=== PATIENT | male | born 1990 | race Caucasian/White ===

== ENCOUNTER → 2020-07-28 10:45 | Outpatient (CLI) | payer BC, SELFPAY ==
--- NOTE | ~2020-07-28 | CT_ITS ---
EXAMINATION: CT abdomen pelvis w con DATE: 07/28/2020 11:09 INDICATION: Enlarged lymph node left lower quadrant. Generalized abdominal pain. TECHNIQUE: Computed tomography (CT) of the abdomen and pelvis was performed with 100 cc Omnipaque 350 intravenous contrast. Automated exposure control and iterative reconstruction technique were employe d. Exam dose: 567.31 mGy-cm total exam DLP. COMPARISON: None. FINDINGS: The lung bases are clear. Normal heart size. No pericardial or pleural effusion. The liver, gallbladder, bile ducts, spleen, pancreas, pancreatic duct, and adrenal glands and kidneys are unremarkable. Normal caliber of the abdominal aorta. No intraperitoneal or retroperitoneal or pelvic mass lesion or adenopathy or ascites. The urinary bladder and prostate gland and seminal vesicles are unremarkable. No evidence of appendicitis. No bowel obstruction, bowel wall thickening, pneumatosis or intraperiton eal free air. Small fat-containing umbilical hernia. There is chronic deformity of the left femoral head. Included skeletal structures are otherwise unrem arkable. IMPRESSION: Chronic deformity left femoral head Reviewed, dictated and finalized at Location A. Reviewed, dictated and finalized at location B.
== END ==
PROVIDERS: PCP Family Medicine; Visit Provider Family Medicine
DX: R59.9 Enlarged lymph nodes, unspecified (principal)
CPT/HCPCS: 74177; Q9967

== ENCOUNTER 2021-07-27 02:15 | Day surgery (SDC) | payer BC, SELFPAY ==
[2021-07-21 08:30] VITALS: BMI 24.7
--- NOTE | 2021-07-25 12:29 | WPDANESEPPF ---
Anes - Initial Pre Proc Eval Procedure: Operation Date: 07/27/21 13:00 Proposed Procedures p Colonoscopy - Antoine Gonzalez MD Date/Time: 07/25/21 12:29 Surgeon: Antoine Gonzalez MD Pre Op Diagnosis: abdominal pain, constipation Patient Data Age: 31 Gender: M Height: 1.83 m Weight: 83 kg Allergies Allergy/AdvReac Type Severity Reaction Status Date / Time amoxicillin Allergy Unknown Skin Verified 07/27/21 11:42 Reaction Home Medications Medication Instructions Recorded Confirmed Type plecanatide 3 mg tablet 3 mg PO DAILY 30 Days #30 tablet 06/30/21 07/21/21 Rx Patient hx anesthesia problems: none Family hx anesthesia problems: none Results Review: All pre-operative results and documents have been reviewed as part of the pre-operative evaluation. [facility]LY [facility] Past Medical History Medical History (Updated 06/30/21 @ 14:32 by Justyna Leal CMA) Anxiety Arthritis IBS (irritable bowel syndrome) Migraine Surgical History Surgical History H/O arthroscopy Family History Family History Father Hypertension Mother Family history of elevated blood lipids Family history of cardiovascular disease Family history of cardiac disorder Social History Social History (Updated 06/30/21 @ 14:33 by Justyna Leal CMA) Smoking status: Never smoker Second hand tobacco smoke exposure: No Alcohol intake: never Alcohol use details: social Substance use: never Substance use type: does not use Living arrangements: with family Spiritual care concerns: No Anes - Eval Final PreProcedure Day of Procedure 07/25/21 12:29 Patient weight: normal Heart: regular rate and rhythm Lungs: clear to auscultation and normal air movement Airway: Mallampati scale class II Neurological: alert and oriented Last oral intake: >/= 8 hours ASA classification: II Emergent: no Anesthetic plan: proceed Anesthesia type and monitoring: general GIVS and standard monitoring Results Review: All pre-operative results and documents have been reviewed as part of the pre-operative evaluation. Informed Consent: The patient's anesthetic plan and its attendant risks and benefits were discussed with the patient/family/POA. Questions were solicited and answers provided to the satisfaction of the patient/family/POA.
--- NOTE | 2021-07-26 10:49 | P.HP_ITS ---
History of Present Illness History of Present Illness Consent: Risks, benefits, and alternatives have been discussed and questions answered. Patient agrees to proceed with procedure. Chief complaint: abdominal pain, constipation Narrative: Derik Hernandez is a 31 year old male with severe constipation. He had tried Linzess but had problems with it , as it causes him to have a discomfort in his throat any fear that he may be allergic to it. He had also tried another medication which helped for about 1 week. Although his bowels move more frequently, the pain did not subside. He has tried other things such as high- fiber diet Review of Systems Review of Systems: All systems reviewed & are unremarkable except as noted in HPI and below PMFSH Past Medical History Medical History Anxiety Arthritis IBS (irritable bowel syndrome) Migraine Surgical History Surgical History H/O arthroscopy Family History Family History Father Hypertension Mother Family history of elevated blood lipids Family history of cardiovascular disease Family history of cardiac disorder Social History Social History Smoking status: Never smoker Second hand tobacco smoke exposure: No Alcohol intake: never Alcohol use details: social Substance use: never Substance use type: does not use Living arrangements: with family Spiritual care concerns: No Meds Home Medications and Allergies Home Medications Medication Instructions Recorded Confirmed Type plecanatide 3 mg tablet 3 mg PO DAILY 30 Days #30 tablet 06/30/21 07/21/21 Rx Allergies Allergy/AdvReac Type Severity Reaction Status Date / Time amoxicillin Allergy Unknown Skin Verified 07/27/21 11:42 Reaction Exam Const: General: alert Orientation/consciousness: patient oriented x3 Resp: Auscultation: clear to auscultation bilaterally Cardio: Rhythm: regular rhythm GI: GI Palp: Yes Soft to palpation and No Tenderness to palpation present (GI) Neuro: General: patient oriented x3 Assessment and Plan Assessment and plan (1) Constipation: Qualifiers: Constipation type: other constipation type Qualified Code(s): K59.09 - Other constipation Code(s): K59.00 - Constipation, unspecified Status: Acute Assessment and Plan: Colonoscopy with possible biopsy or polypectomy or cautery or injection of substances.
[2021-07-27 11:44] VITALS: BP 136/75; PULSE 83; RESP 18; TEMP 36.2; O2SAT 98
[2021-07-27] MEDS: LACTATED RINGERS 1,000 ML 150 ML IV CONT (11:57)
[2021-07-27 13:21] VITALS: BP 120/66; PULSE 74; RESP 18; O2SAT 100
[2021-07-27 13:31] VITALS: BP 116/63; PULSE 75; RESP 18; O2SAT 100
[2021-07-27 13:40] VITALS: BP 110/70; PULSE 66; RESP 18; O2SAT 100
== END 2021-07-27 13:48 | disposition home or self-care (01) ==
PROVIDERS: PCP Family Medicine; Visit Provider Internal Medicine Gastroenterology
PROC: 0DJD8ZZ Inspection of Lower Intestinal Tract, Via Natural or Artificial Opening Endoscopic (ICD-10-PCS; CPT 45378; principal; 2021-07-27 13:00)
DX: K58.1 Irritable bowel syndrome with constipation (principal)
CPT/HCPCS: 45378; J2704; J7120

== ENCOUNTER → 2022-01-16 09:37 | Outpatient (CLI) | payer BC, SELFPAY ==
--- NOTE | ~2022-01-16 | XR_ITS ---
XR wrist LT min 3V DATE: 01/16/2022 09:47 INDICATION: Left wrist pain TECHNIQUE: 4 views COMPARISON: None FINDINGS: No fracture or dislocation, periosteal reaction or bone destruction. Joint spaces are prese rved. No chondrocalcinosis IMPRESSION: No significant abnormality Reviewed, dictated and finalized at location A. IMPRESSION: No significant abnormality
== END ==
PROVIDERS: PCP Family Medicine; Visit Provider Family Medicine
DX: M25.532 Pain in left wrist (principal)
CPT/HCPCS: 73110

== ENCOUNTER → 2022-11-12 15:17 | Outpatient (CLI) | payer BC, SELFPAY ==
--- NOTE | ~2022-11-12 | XR_ITS ---
EXAMINATION: XR chest 2V Exam Date/Time: 11/12/2022 15:27 CDT HISTORY: sob Comparison: 11/14/2017. RESULT: Lines, tubes, and devices: None. Lungs and pleura: Clear. Cardiomediastinal silhouette: Stable. Other: No acute osseous or upper abdominal finding. IMPRESSION: No acute cardiopulmonary process. Reviewed, dictated and finalized at location K.
== END ==
PROVIDERS: PCP Family Medicine; Visit Provider Family Medicine
DX: R06.02 Shortness of breath (principal)
CPT/HCPCS: 71046

== ENCOUNTER 2023-01-20 13:29 | Outpatient (CLI) | payer BC, SELFPAY ==
[2023-01-20 17:11] LABS: Alanine Aminotransferase 79 U/L (6-50); Albumin Level 4.5 g/dL (3.5-5.1); Alkaline Phosphatase 65 U/L (38-126); Anion Gap 5 mmol/L (8-16); Aspartate Amino Transferase 47 U/L (17-59); Bilirubin,Total 0.5 mg/dL (0.2-1.3); Blood Urea Nitrogen 16 mg/dL (9-20); Carbon Dioxide 32 mmol/L (22-30); Chloride 102 mmol/L (98-107); Estimated Glomerular Filt Rate > 60; Glucose 85 mg/dL (65-110); Potassium 4.1 mmol/L (3.4-5.0); Sodium 139 mmol/L (137-145)
[2023-01-20 17:18] LABS: Hematocrit 43.4 % (42.0-52.0); Hemoglobin 14.4 g/dL (14.0-18.0); Mean Corpuscular HGB Conc 33.2 g/dl (32-36); Mean Corpuscular Hemoglobin 29.8 pg (26-34); Mean Corpuscular Volume 89.9 fl (80-100); Mean Platelet Volume 10.8 fl (7.4-10.4); Platelet Count Result 240 k/mm3 (150-375); Red Blood Count 4.83 M/mm3 (4.6-6.20); Red Cell Distribution Width 11.6 % (11.5-14.5); White Blood Count 6.4 K/mm3 (4.5-10.0)
[2023-01-20 17:42] LABS: Thyroid Stimulating Hormone 0.439 uIU/mL (0.465-4.680)
[2023-01-20 17:51] LABS: Erythrocyte Sedimentation Rate 9 mm/hr (0-20)
== END 2023-01-20 13:30 | disposition home or self-care (01) ==
LOC: ANHGOSHLAB 13:30
PROVIDERS: PCP Family Medicine; Visit Provider Family Medicine
DX: R51.9 Headache, unspecified (principal); Z79.899 Other long term (current) drug therapy
CPT/HCPCS: 36415; 80053; 84443; 85027; 85652

== ENCOUNTER → 2023-01-28 10:42 | Outpatient (CLI) | payer BC, SELFPAY ==
--- NOTE | ~2023-01-28 | CT_ITS ---
EXAMINATION: CT brain & sinus wo con DATE: 01/28/2023 10:57 INDICATION: Headaches located in the frontal sinus area retro-orbital area TECHNIQUE: Computed tomography (CT) of the head was performed without intravenous contrast. The mA wa s adjusted according to patient size. Iterative reconstruction technique was employed. Exam dose: 72 6.40 mGy-cm total exam DLP. COMPARISON: None FINDINGS: Prominent cisterna magna. No intracranial mass lesion or hemorrhage or cerebrovascular acci dent, midline shift or mass effect. Normal magana-white matter differentiation. Normal ventricular size . No orbital mass lesion. There is soft tissue swelling of the nasal turbinates, right greater than left. The ostiomeatal units are patent. There is mild mucoperiosteal thickening in the right frontoethmoid area, minimal mucoperiosteal thick ening in the lower maxillary sinuses and mild patchy soft tissue thickening of the ethmoid air cells, slight mucoperiosteal thickening of the sphenoid sinuses. No paranasal sinus fluid levels are noted. The mastoid air cells are normally developed and aerated. No fracture or bone destruction of the cranial vault. IMPRESSION: Mild paranasal sinus disease No significant intracranial abnormality Reviewed, dictated and finalized at Location A. Reviewed, dictated and finalized at location A.
== END ==
PROVIDERS: PCP Family Medicine; Visit Provider Family Medicine
DX: R51.9 Headache, unspecified (principal)
CPT/HCPCS: 70450; 70486

== ENCOUNTER 2023-07-14 09:23 | Outpatient (CLI) | payer BC, SELFPAY ==
[2023-07-14 19:20] LABS: Alanine Aminotransferase 43 U/L (6-50); Albumin Level 4.6 g/dL (3.5-5.1); Alkaline Phosphatase 94 U/L (38-126); Anion Gap 5 mmol/L (8-16); Aspartate Amino Transferase 42 U/L (17-59); Blood Urea Nitrogen 15 mg/dL (9-20); Calcium 9.5 mg/dL (8.4-10.2); Carbon Dioxide 29 mmol/L (22-30); Chloride 105 mmol/L (98-107); Cholesterol 224 mg/dL (0-200); Estimated Glomerular Filt Rate > 60; Glucose 93 mg/dL (65-110); HDL Direct 46 mg/dL; Potassium 4.3 mmol/L (3.4-5.0); Sodium 139 mmol/L (137-145); Triglycerides 76 mg/dL (<150)
[2023-07-14 19:35] LABS: Hematocrit 47.8 % (42.0-52.0); Hemoglobin 15.4 g/dL (14.0-18.0); Mean Corpuscular HGB Conc 32.2 g/dl (32-36); Mean Corpuscular Hemoglobin 28.5 pg (26-34); Mean Corpuscular Volume 88.5 fl (80-100); Mean Platelet Volume 10.5 fl (7.4-10.4); Platelet Count Result 230 k/mm3 (150-375); Thyroid Stimulating Hormone 0.456 uIU/mL (0.465-4.680); White Blood Count 5.9 K/mm3 (4.5-10.0)
[2023-07-14 19:38] LABS: LDL Cholesterol Direct 140 mg/dL
== END 2023-07-14 09:24 | disposition home or self-care (01) ==
LOC: ANHGOSHLAB 09:25
PROVIDERS: PCP Family Medicine; Visit Provider Family Medicine
DX: E66.3 Overweight (principal); E78.5 Hyperlipidemia, unspecified; R79.89 Other specified abnormal findings of blood chemistry; Z79.899 Other long term (current) drug therapy
CPT/HCPCS: 36415; 80053; 80061; 84439; 84443; 85027

== ENCOUNTER 2024-08-19 10:12 | Emergency (ER) | payer BC, SELFPAY ==
--- NOTE | ~2024-08-19 | XR_ITS ---
XR chest 2V Ordering provider: Rakesh Vick MD History: 34 years Male with . chest pain . Comparison: None.2022 FINDINGS: MEDIASTINUM: The cardiac silhouenot enlarged.l ed. No infiltrates, effusions or pneumothorax.t ax. Possibility of a nodule seen anteriorly in the later al view and most likely in the right lower lobe is not excluded. 3 months follow-up advised. Macy free air under the diaphragm.p gm. IMPRESSION: No acute cardiopulmonary pathology. Possibility of nodule is seen in the lateral view is not excluded. 3 months follow-up advised. Reviewed, dictated and finalized at location A. IMPRESSION: No acute cardiopulmonary pathology. Possibility of nodule is seen in the lateral view is not excluded. 3 months fol low-up advised.
--- NOTE | 2024-08-19 10:14 | ECG_ITS ---
Test Date: 2024-08-19 10:24:38 Measurements Intervals [place] Rate: 79 P: 77 NM: 156 QRS: 99 QRSD: 102 T: 49 QT: 347 QTc: 399 Interpretive Statements SINUS RHYTHM RIGHT AXIS DEVIATION BORDERLINE ECG No previous ECG available for comparison Electronically Signed On 08-19-2024 14:46:22 CDT by Dillan Squires D.O.
--- OUTSIDE RECORDS SUMMARY | 2024-08-19 10:14 | XMS_ITS | Clinical Summary ---
Author Organization [facility] [place] 163 [facility] Address [address] [place] [address] Care Team Providers Care Freelance Web Designer Name Role Phone Rick Maynard MD Primary Care Provider [phone] Allergies Active Allergy Reactions Criticality Noted Date Comments Amoxicillin Rash Medium 09/29/2020 Medications escitalopram (LEXAPRO) 5 mg tablet 09/15/2023 Active Active Problems No known active problems Surgical History Surgery Date Site/Laterality Comments NO PAST SURGERIES Medical History Medical History Date Comments No pertinent past medical history Family History Medical History Relation Name Comments No Known Problems Father No Known Problems Mother Relation Name Status Comments Father Alive Mother Alive Social History Tobacco Use Types Packs/Day Years Used Date Smoking Tobacco: Never Smokeless Tobacco: Never Personal Safety Answer Date Recorded Getting School Help Needed Not on file 07/09 Sex and Gender Information Value Date Recorded Sex Assigned at Not on file Legal Sex Male 9:38 AM CDT Gender Identity Not on file Sexual Orientation Not on file Obstetrics History Last Filed Vital Signs Vital Sign Reading Time Taken Comments Blood Pressure 128/72 12/07/2023 9:25 AM CDT Pulse 80 12/07/2023 9:25 AM CDT Temperature 36.6 C (97.8 F) 12/07/2023 9:25 AM CDT Respiratory Rate 18 12/07/2023 9:25 AM CDT Oxygen Saturation 98% 12/07/2023 9:25 AM CDT Inhaled Oxygen Concentration - - Weight 86.2 kg (190 lb) 12/07/2023 9:25 AM CDT Height 182.9 cm (6') 12/07/2023 9:25 AM CDT Body Mass Index 25.77 12/07/2023 9:25 AM CDT Plan of Treatment Health Maintenance Due Date Last Done Comments Depression Screening 1989 Hepatitis C Screening 1989 Varicella Vaccines (1 of 2 - 13+ 2-dose series) 2002 Hepatitis B Screening 2007 Regular Well Visit/Exam 18-64 2007 Influenza Vaccine (#1) 2024 02/27/2019 DTaP/Tdap/Td Vaccine (3 - Td or Tdap) 12/18/2027 12/17/2017, 06/30/1993 HPV Vaccines Aged Out No longer eligi ble based on patient's age to complete this topic Pneumococcal vaccine <65 Aged Out No longer eligible based on patient's age to complete this topic Insurance [employer] OOS Care Teams Freelance Web Designer Relationship Specialty Start Date End Date Rick Maynard MD [address] [place] [address] PCP - General Family Medicine 09/29/20
--- OUTSIDE RECORDS SUMMARY | 2024-08-19 10:14 | XMS_ITS | Referral Summary ---
Author Organization [facility] [place] 163 [facility] Address [address] [address] Care Team Providers Care Flat Screen Worker Name Role Phone Rick Maynard MD Primary Care Provider [phone] Allergies Active Allergy Reactions Criticality Noted Date Comments Amoxicillin Rash Medium 09/29/2020 Medications escitalopram (LEXAPRO) 5 mg tablet 09/15/2023 Active Active Problems No known active problems Social History Tobacco Use Types Packs/Day Years Used Date Smoking Tobacco: Never Smokeless Tobacco: Never Personal Safety Answer Date Recorded Getting School Help Needed Not on file 07/09 Sex and Gender Information Value Date Recorded Sex Assigned at Not on file Legal Sex Male 9:38 AM CDT Gender Identity Not on file Sexual Orientation Not on file Last Filed Vital Signs Vital Sign Reading [...] 12/07/2023 9:25 AM CDT Plan of Treatment Not on file Insurance [employer] OOS Care Teams Flat Screen Worker Relationship Specialty Start Date End Date Rick Maynard MD [address] [place] [address] PCP - General Family Medicine 09/29/20
[2024-08-19 10:29] VITALS: BP 133/84; PULSE 81; RESP 16; TEMP 36.3; O2SAT 99
[2024-08-19 11:11] LABS: Basophils Absolute Auto 0.1 K/mm3 (0.0-0.1); Basophils Percent Auto 1.2 % (0.2-1.2); Eosinophils Absolute Auto 0.3 K/mm3 (0-0.3); Eosinophils Percent Auto 4.9 % (0-4.4); Hematocrit 44.7 % (42.0-52.0); Hemoglobin 14.9 g/dL (14.0-18.0); Immature Granulocyte Absolute 0.02 K/mm3 (0.00-0.031); Immature Granulocyte Percent A 0.3 % (0-0.5); Lymphocytes Absolute Auto 1.37 K/mm3 (0.9-3.2); Lymphocytes Percent Auto 23.3 % (18.3-44.2); Mean Corpuscular HGB Conc 33.3 g/dl (32-36); Mean Platelet Volume 10.2 fl (7.4-10.4); Monocytes Absolute Auto 0.5 K/mm3 (0.1-0.6); Monocytes Percent Auto 8.3 % (2.6-8.5); Neutrophils Absolute Auto 3.7 K/mm3 (1.3-6.7); Platelet Count Result 210 k/mm3 (150-375); Red Blood Count 5.14 M/mm3 (4.6-6.20); Red Cell Distribution Width 12.2 % (11.5-14.5); White Blood Count 5.9 K/mm3 (4.5-10.0)
[2024-08-19 11:15] VITALS: BP 135/80; PULSE 71; RESP 16; TEMP 36.6; O2SAT 100; O2SAT 98
[2024-08-19] MEDS: ASPIRIN 81 MG CHEWABLE TABLET 324 MG PO (11:19)
[2024-08-19 11:27] LABS: Alanine Aminotransferase 52 U/L (6-50); Albumin Level 4.7 g/dL (3.5-5.1); Alkaline Phosphatase 107 U/L (38-126); Anion Gap 9 mmol/L (4-12); Aspartate Amino Transferase 32 U/L (17-59); Bilirubin,Total 0.5 mg/dL (0.2-1.3); Blood Urea Nitrogen 19 mg/dL (9-20); Calcium 9.3 mg/dL (8.4-10.2); Carbon Dioxide 28 mmol/L (22-30); Chloride 104 mmol/L (98-107); Estimated CRCL calculation 86 ml/min; Estimated Glomerular Filt Rate > 60; Glucose 104 mg/dL (65-110); INR 0.9; Lipase 114 U/L (23-300); Partial Thromboplastin Time 24.2 Seconds (22.3-36.8); Potassium 4.6 mmol/L (3.4-5.0); Prothrombin Time 13.1 Seconds (11.1-14.7); Sodium 141 mmol/L (137-145)
--- OUTSIDE RECORDS SUMMARY | 2024-08-19 11:28 | XMS_ITS | Clinical Summary ---
Author Organization [facility] [place] 163 [facility] Address [address] [facility] [address] Care Team Providers Care Facility Manager Name Role Phone Rick Maynard MD Primary Care Provider [phone] Allergies Active Allergy Reactions Criticality Noted Date [...] patient's age to complete this topic Insurance [employer] OOS Care Teams Facility Manager Relationship Specialty Start Date End Date Rick Maynard MD [address] [place] [address] PCP - General Family Medicine 09/29/20
--- OUTSIDE RECORDS SUMMARY | 2024-08-19 11:28 | XMS_ITS | Referral Summary ---
Author Organization [facility] [place] 163 [facility] Address [address] [place] [address] Care Team Providers Care Medical Laboratory Scientist Name Role Phone Rick Maynard MD Primary Care Provider [phone] Allergies Active Allergy Reactions Criticality Noted Date [...] Plan of Treatment Not on file Insurance [employer] OOS Care Teams Medical Laboratory Scientist Relationship Specialty Start Date End Date Rick Maynard MD [address] [place] [address] PCP - General Family Medicine 09/29/20
[2024-08-19 11:38] LABS: Troponin I < 0.012 ng/mL (0.000-0.034)
[2024-08-19 12:12] VITALS: BP 124/78; PULSE 65; RESP 16; O2SAT 99
[2024-08-19 13:00] VITALS: BP 122/79; PULSE 62; RESP 14; O2SAT 99
--- NOTE | 2024-08-19 13:07 | ECG_ITS ---
Test Date: 2024-08-19 13:14:11 Measurements Intervals [place] Rate: 63 P: 69 TN: 168 QRS: 87 QRSD: 102 T: 42 QT: 373 QTc: 382 Interpretive Statements SINUS RHYTHM BASELINE ARTIFACT- I, III, AVL BORDERLINE ECG Compared to ECG 08/19/2024 10:24:38 Right-axis deviation no longer present Electronically Signed On 08-19-2024 14:51:42 CDT by Dillan Squires D.O.
[2024-08-19 13:38] LABS: Troponin I < 0.012 ng/mL (0.000-0.034)
--- NOTE | 2024-08-19 13:59 | ED_ITS ---
HPI - General Adult General Chief complaint: Chest Pain Stated complaint: chest pain 2 days Time Seen by Provider: 08/19/24 11:16 History of Present Illness HPI narrative: This is a 34-year-old male presenting ED with chief complaint of chest pain. Over the last 3 days the patient has been having intermittent chest tightness. This typically in the center of his chest sometimes he feels discomfort in his left arm and jaw. It is 2 or 3 of intensity. It comes and goes and lasts for about an hour to time. He has never had pain like this before there are no exacerbating or alleviating factors. He did have a panic attack several days ago. The pain itself is not associated with vomiting, diaphoresis or exertion. He denies fevers chills productive cough or difficulty breathing. No lower extremity edema. Patient exercises 3-4 times per week. He does not have any risk factors for coronary artery disease. He does not smoke cigarettes. No family history of coronary artery disease. Related Data Allergies Allergy/AdvReac Type Severity Reaction Status Date / Time amoxicillin Allergy Unknown Skin Verified 08/19/24 11:16 Reaction PMFSH Past Medical History Medical History Juvenile osteochondrosis of hip and pelvis Atypical chest pain Arthritis IBS (irritable bowel syndrome) Migraine Anxiety Surgical History Surgical History H/O arthroscopy Family History Family History Father Hypertension Mother Family history of elevated blood lipids Family history of cardiovascular disease Family history of cardiac disorder Social History Social History Smoking status: Never smoker Second hand tobacco smoke exposure: No Alcohol intake: current Alcohol use details: social Substance use: never Substance use type: does not use Lack of Transportation: No Lack of Food: Never True Current Housing: I Have Housing Concerned About Future Housing: No Difficulty Paying Gas/Electric Bills: No Difficulty Paying for Meds: No Currently Unemployed: No Education: Bachelor's Degree Difficulty w/ Childcare or Family Care: No Living arrangements: with family Spiritual care concerns: No Exam 2 Narrative: APPEARANCE: No apparent distress. Head: atraumatic. EYES: EOMI, NOSE: Atraumatic NECK: Trachea midline RESPIRATORY: No increased rate of breathing CTAB CARDIOVASCULAR: RRR, no peripheral edema ABDOMINAL: Non-distended nontender MUSCULOSKELETAl: No obvious deformities NEURO: Alert. Moving 4/4 extremities SKIN:: Warm, dry. Normal color PSYCHIATRIC: Normal affect Course Vital Signs Vital signs: Vital Signs Temperature 97.4 F L 08/19/24 10:29 Pulse Rate 81 08/19/24 10:29 Respiratory Rate 16 08/19/24 10:29 Blood Pressure 133/84 08/19/24 10:29 Pulse Oximetry 99 08/19/24 10:29 Oxygen Delivery Room Air 08/19/24 10:29 Temperature 97.4 F L 08/19/24 10:29 Pulse Rate 81 08/19/24 10:29 Respiratory Rate 16 08/19/24 10:29 Blood Pressure 133/84 08/19/24 10:29 Pulse Oximetry 100 08/19/24 11:15 Oxygen Delivery Room Air 08/19/24 11:15 Medical Decision Making MDM Narrative Medical decision making narrative: -Course: Patient's EKGs and labs are reviewed without significant high risk changes. Cardiac risk factors reviewed. Heart score is <4 and it iss reasonable for further risk stratification to be performed as outpatient. Pain was not sudden or maximal onset not tearing or ripping quality. No other signs or symptoms suggest aortic dissection. PERC Negative PE is felt to be unlikely. No pneumonia seen on evaluation today. Patient is felt to be reasonable candidate for continued evaluation as an outpatient. -DDX includes but is not limited to: ACS, pneumonia, PE, pneumothorax or aortic dissection Independent EKG interpretation: Rhythm [sinus], Rate [63], [place] -[normal], AL -[normal], QRS [narrow], QTC [normal], T waves -[negative for concerning inversions], ST Segments - [Negative for concerning elevations] Final interpretations: [Normal Sinus Rhythm] Vital Signs Vital Signs: Vital Signs Temperature 97.4 F L 08/19/24 10:29 Pulse Rate 81 08/19/24 10:29 Respiratory Rate 16 08/19/24 10:29 Blood Pressure 133/84 08/19/24 10:29 Pulse Oximetry 99 08/19/24 10:29 Oxygen Delivery Room Air 08/19/24 10:29 Temperature 97.4 F L 08/19/24 10:29 Pulse Rate 81 08/19/24 10:29 Respiratory Rate 16 08/19/24 10:29 Blood Pressure 133/84 08/19/24 10:29 Pulse Oximetry 100 08/19/24 11:15 Oxygen Delivery Room Air 08/19/24 11:15 Lab Data 08/19/24 10:57 08/19/24 10:57 Labs: Lab Results 08/19/24 08/19/24 Range/Units 10:57 13:08 WBC 5.9 (4.5-10.0) K/mm3 RBC 5.14 (4.6-6.20) M/mm3 Hgb 14.9 (14.0-18.0) g/dL Hct 44.7 (42.0-52.0) % MCV 87.0 (80-100) fl MCH 29.0 (26-34) pg MCHC 33.3 (32-36) g/dl RDW 12.2 (11.5-14.5) % Plt Count 210 (150-375) k/mm3 MPV 10.2 (7.4-10.4) fl Immature Gran % (Auto) 0.3 (0-0.5) % Neut % (Auto) 62.0 (45.5-73.1) % Lymph % (Auto) 23.3 (18.3-44.2) % [place] % (Auto) 8.3 (2.6-8.5) % Eos % (Auto) 4.9 H (0-4.4) % Baso % (Auto) 1.2 (0.2-1.2) % Lymph # (Auto) 1.37 (0.9-3.2) K/mm3 [place] # (Auto) 0.5 (0.1-0.6) K/mm3 Eos # (Auto) 0.3 (0-0.3) K/mm3 Baso # (Auto) 0.1 (0.0-0.1) K/mm3 Abs Immat Gran (auto) 0.02 (0.00-0.031) K/mm3 Absolute Neuts (auto) 3.7 (1.3-6.7) K/mm3 Absolute Nucleated RBC 0.000 (0.0-0.012) K/mm3 Nucleated RBC % 0.0 (0.0-0.2) % PT 13.1 (11.1-14.7) Seconds INR 0.9 APTT 24.2 (22.3-36.8) Seconds Sodium 141 (137-145) mmol/L Potassium 4.6 (3.4-5.0) mmol/L Chloride 104 (98-107) mmol/L Carbon Dioxide 28 (22-30) mmol/L Anion Gap 9 (4-12) mmol/L BUN 19 (9-20) mg/dL Creatinine 1.17 (0.7-1.3) mg/dL Estim Creat Clear Calc 86 ml/min Estimated GFR > 60 (59 - ) Glucose 104 (65-110) mg/dL Calcium 9.3 (8.4-10.2) mg/dL Total Bilirubin 0.5 (0.2-1.3) mg/dL AST 32 (17-59) U/L ALT 52 H (6-50) U/L Alkaline Phosphatase 107 (38-126) U/L Troponin I < 0.012 < 0.012 (0.000-0.034) ng/mL Total Protein 8.0 (6.3-8.2) g/dL Albumin 4.7 (3.5-5.1) g/dL Lipase 114 (23-300) U/L Discharge Plan Discharge Clinical Impression: Chest pain Patient Disposition: Left Against Medical Advice Condition: Stable Instructions: Chest Pain (ED) Additional Instructions: You seen in the emergency department for chest pain. Workup here was reassuring. Please follow-up with your primary care physician in the next 1 week for further management of your chest pain as well as your anxiety/panic attacks. Your chest x-ray showed a possible nodule in the right lower lobe. Please follow-up with your primary care physician as you may need repeat imaging in 3 months for further evaluation. Patient Language: South Sudanese Prescriptions: No Action albuterol sulfate 90 mcg/actuation HFA aerosol inhaler 2 inh inhalation Q4H PRN (Reason: shortness of breath or wheezing) Qty: 8.5 3RF cyclobenzaprine 10 mg tablet 10 mg PO TID PRN (Reason: muscle spasm) Qty: 30 0RF escitalopram oxalate 5 mg tablet 5 mg PO DAILY Qty: 30 1RF Follow-up/Referrals: Tahira Rojas DO [Primary Care Provider] - 1 Week (Anxiety/CHest pain, Lung nodule )
[2024-08-19 14:00] VITALS: BP 116/71; PULSE 61; RESP 18; O2SAT 99
[2024-08-19 14:14] VITALS: BP 132/78; PULSE 80; RESP 16; TEMP 36.6; O2SAT 100
== END 2024-08-19 14:15 | disposition left against medical advice (07) ==
PROVIDERS: Emergency Provider Emergency Medicine; PCP Family Medicine
DX: R07.89 Other chest pain (principal); K58.9 Irritable bowel syndrome, unspecified; M19.90 Unspecified osteoarthritis, unspecified site; F41.9 Anxiety disorder, unspecified; Z79.899 Other long term (current) drug therapy; R94.31 Abnormal electrocardiogram [ECG] [EKG]
CPT/HCPCS: 36415; 71046; 80053; 83690; 84484; 85025; 85610; 85730; 93005; 99284; A9270

== ENCOUNTER 2024-10-11 11:10 | Outpatient (CLI) | payer BC, SELFPAY ==
--- NOTE | ~2024-10-11 | XR_ITS ---
AP and lateral views of the left hip Clinical history: Pain Findings: No acute fracture or dislocation is seen. Osseous alignment is anatomic. Left hip joint is intact. Soft tissues are unremarkable. Impression: No significant abnormality is seen. Reviewed, dictated and finalized at location M. Impression: No significant abnormality is seen.
== END 2024-10-11 11:11 | disposition home or self-care (01) ==
LOC: GOSHIMG 11:10
PROVIDERS: PCP Family Medicine; Visit Provider Family Medicine
DX: M25.552 Pain in left hip (principal)
CPT/HCPCS: 73502

== ENCOUNTER 2024-11-21 15:51 | Outpatient (CLI) | payer BC, SELFPAY ==
--- NOTE | ~2024-11-21 | CT_ITS ---
CT Scan of the Chest without Contrast: Clinical Indication: Pulmonary nodule Technique: Contiguous sections were acquired throughout the chest without intravenous contrast. Dose reduction technique was used on this scan by utilizing automated exposure control and iterative recon struction technique. The dose-length product (DLP) was 260.55 mGy-cm. Findings: There is no evidence of any significant mediastinal, hilar or axillary lymphadenopathy. The mediastin al soft tissues appear normal. There is no evidence of pleural or pericardial effusion. The lungs are clear. No pulmonary nodules or infiltrates are noted. Images through the upper abdomen reveal no abnormalities. Impression: No significant abnormalities seen. Reviewed, dictated and finalized at location . Impression: No significant abnormalities seen.
== END 2024-11-21 15:52 | disposition home or self-care (01) ==
PROVIDERS: PCP Family Medicine; Visit Provider Nurse Practitioner
DX: R91.1 Solitary pulmonary nodule (principal)
CPT/HCPCS: 71250

== ENCOUNTER 2025-01-08 10:49 | Outpatient (CLI) | payer BC, SELFPAY ==
--- NOTE | ~2025-01-08 | XR_ITS ---
X-rays left wrist Indication: Lesion of the ulnar nerve Comparison: 01/16/2022 Technique: 4 views left wrist Findings/Impression: 1. No fracture or dislocation left wrist. 2. No significant degenerative changes. Reviewed, dictated and finalized at location R.
--- NOTE | ~2025-01-08 | XR_ITS ---
EXAM/ PROCEDURE: XR wrist RT min 3V - 01/08/2025 10:45 CDT HISTORY: 35 years old Male with G56.20 - Lesion of ulnar nerve, unspecified upper limb COMPARISON: None available TECHNIQUE: Three view(s) FINDINGS/ IMPRESSION: There are no fractures or dislocations.Joint spaces are within normal limits. Reviewed, dictated and finalized at location N.
--- OUTSIDE RECORDS SUMMARY | 2025-01-08 11:24 | XMS_ITS | Clinical Summary ---
Author Organization [facility] [place] 163 [facility] Address [address] [facility] [place] [address] Care Team Providers Care Freezer Laboratory Technician Name Role Phone Rick Maynard MD Primary Care Provider [phone] Allergies Active Allergy Reactions Criticality Noted Date [...] Screening 2007 Regular Well Visit/Exam 18-64 2007 HPV Vaccines (1 - 3-dose SCD M series) 01/08/2016 Influenza Vaccine (#1) 2025 02/27/2019 DTaP/Tdap/Td Vaccine (3 - Td or Tdap) 12/18/2027 12/17/2017, 06/30/1993 Pneumococcal vaccine <65 Aged Out No longer eligible based on patient's age to complete this topic Insurance [employer] OOS Care Teams Freezer Laboratory Technician Relationship Specialty Start Date End Date Rick Maynard MD [address] [place] [address] PCP - General Family Medicine 09/29/20
== END 2025-01-08 10:50 | disposition home or self-care (01) ==
PROVIDERS: PCP Family Medicine; Visit Provider Plastic Surgery
DX: G56.20 Lesion of ulnar nerve, unspecified upper limb (principal)
CPT/HCPCS: 73110

== ENCOUNTER 2025-03-05 10:51 | Outpatient (CLI) | payer BC, SELFPAY ==
[2025-03-05 12:58] LABS: Hematocrit 42.5 % (42.0-52.0); Hemoglobin 14.0 g/dL (14.0-18.0); Immature Granulocyte Percent A 0.2 % (0-0.5); Lymphocytes Absolute Auto 1.59 K/mm3 (0.9-3.2); Mean Corpuscular HGB Conc 32.9 g/dl (32-36); Mean Corpuscular Hemoglobin 28.7 pg (26-34); Mean Corpuscular Volume 87.1 fl (80-100); Nucleated Red Blood Cells Absolute Auto 0.000 K/mm3 (0.0-0.012); Nucleated Red Blood Cells Perc 0.0 % (0.0-0.2); Platelet Count Result 226 k/mm3 (150-375); Red Blood Count 4.88 M/mm3 (4.6-6.20); White Blood Count 5.0 K/mm3 (4.5-10.0)
[2025-03-05 13:13] LABS: Alanine Aminotransferase 28 U/L (6-50); Albumin Level 4.5 g/dL (3.5-5.1); Alkaline Phosphatase 82 U/L (38-126); Anion Gap 5 mmol/L (4-12); Aspartate Amino Transferase 54 U/L (17-59); Bilirubin,Total 0.7 mg/dL (0.2-1.3); Blood Urea Nitrogen 20 mg/dL (9-20); CRP < 0.5 mg/dL (<1.0); Calcium 9.1 mg/dL (8.4-10.2); Carbon Dioxide 26 mmol/L (22-30); Chloride 107 mmol/L (98-107); Cholesterol 185 mg/dL (0-200); Estimated Glomerular Filt Rate > 60; Glucose 94 mg/dL (65-110); HDL Direct 41 mg/dL; Magnesium 1.9 mg/dL (1.6-2.3); Potassium 4.2 mmol/L (3.4-5.0); Sodium 138 mmol/L (137-145); Total Protein 7.6 g/dL (6.3-8.2); Triglycerides 61 mg/dL (<150)
[2025-03-05 13:34] LABS: Thyroid Stimulating Hormone Reflex 0.844 uIU/mL (0.465-4.68)
[2025-03-05 13:37] LABS: Hepatitis B Surface Antigen Negative (Negative)
[2025-03-05 13:43] LABS: HAV RESULT Negative (Negative); Hepatitis B Core IgM Result Negative (Negative)
[2025-03-05 13:50] LABS: Hemoglobin A1C 5.4 % (<5.7)
[2025-03-05 14:06] LABS: Vitamin B12 661.0 pg/mL (239-931)
[2025-03-06 16:08] LABS: ANA by IFA Rfx Titer/Pattern Negative (.)
== END 2025-03-05 10:52 | disposition home or self-care (01) ==
LOC: ANHGOSHLAB 10:52
PROVIDERS: PCP Family Medicine; Visit Provider Nurse Practitioner Family
DX: M25.50 Pain in unspecified joint (principal); R53.83 Other fatigue; E78.5 Hyperlipidemia, unspecified; E55.9 Vitamin D deficiency, unspecified
CPT/HCPCS: 36415; 80053; 80061; 80074; 82306; 82607; 83036; 83735; 84443; 85025; 85652; 86038; 86140; 86430

== ENCOUNTER 2025-03-12 11:52 | Outpatient (NON) | payer BC, SELFPAY ==
[2025-03-12 13:09] LABS: Add Urine Microscopic? NO; Appearance Urine Clear (Clear); Glucose Urine UA Negative (Negative); Leukocyte Esterase Ur Negative LEU/UL (Negative); Nitrate Urine Negative (Negative); Specific Grav Ur 1.018 (1.001-1.035)
--- OUTSIDE RECORDS SUMMARY | 2025-03-12 14:01 | XMS_ITS | Clinical Summary ---
Author Organization [address] Address [address] [place] [address] Care Team Providers Care Acid Tester Name Role Phone Rick Maynard MD Primary Care Provider [phone] Allergies Active Allergy Reactions Criticality Noted Date Comments Amoxicillin Rash Medium 09/29/2020 Medications escitalopram (LEXAPRO) 5 mg tablet 09/15/2023 Active Active Problems No known active problems Encounters Date Type Department Care Team Description 01/18/2025 10:30 AM CDT Office Visit [facility] [place] [address] [place] [address] Kiya Valdes NP Viral URI with cough (Primary Dx) from Last 3 Months Surgical History Surgery Date Site/Laterality Comments NO PAST SURGERIES Medical History Medical History Date Comments No pertinent past medical history Family History Medical History Relation Name Comments No Known Problems Father No Known Problems Mother Relation Name Status Comments Father Alive Mother Alive Social History Tobacco Use Types Packs/Day Years Used Date Smoking Tobacco: Never Smokeless Tobacco: Never Sex and Gender Information Value Date Recorded Sex Assigned at Not on file Legal Sex Male 9:38 AM CDT Gender Identity Not on file Sexual Orientation Not on file Last Filed Vital Signs Vital Sign Reading Time Taken Comments Blood Pressure 120/76 01/18/2025 10:30 AM CDT Pulse 82 01/18/2025 10:30 AM CDT Temperature 36.3 C (97.3 F) 01/18/2025 10:30 AM CDT Respiratory Rate 18 01/18/2025 10:30 AM CDT Oxygen Saturation 99% 01/18/2025 10:30 AM CDT Inhaled Oxygen Concentration - - Weight 86.2 kg (190 lb) 01/18/2025 10:30 AM CDT Height 182.9 cm (6') 01/18/2025 10:30 AM CDT Body Mass Index 25.77 01/18/2025 10:30 AM CDT Plan of Treatment Health Maintenance Due Date Last Done Comments Depression Screening 1989 Hepatitis C Screening 1989 Varicella Vaccines (1 of 2 - 13+ 2-dose series) 2002 Hepatitis B Screening 2007 Regular Well Visit/Exam 18-64 2007 HPV Vaccines (1 - 3-dose SCD M series) 01/08/2016 Influenza Vaccine (#1) 2025 , 02/17/2017, 04/16/2016 DTaP/Tdap/Td Vaccine (4 - Td or Tdap) 12/18/2027 12/17/2017, 01/01/2015, 06/30/1993 Pneumococcal vaccine <65 Aged Out No longer eligible based on patient's age to complete this topic Insurance [employer] OOS Care Teams Acid Tester Relationship Specialty Start Date End Date Rick Maynard MD [address] [place] [place] [address] PCP - General Family Medicine 09/29/20
== END 2025-03-12 11:53 | disposition home or self-care (01) ==
LOC: ANHGOSHLAB 11:54
PROVIDERS: PCP Family Medicine; Visit Provider Nurse Practitioner Family
DX: R30.0 Dysuria (principal)
CPT/HCPCS: 81003

== ENCOUNTER 2025-03-26 12:46 | Outpatient (CLI) | payer BC, SELFPAY ==
--- NOTE | 2025-03-26 13:00 | NEURO_ITS ---
Impression: # Complains of left wrist discomfort. ? # No Carpal Tunnel Syndrome. ? # Right Ulnar Neuropathy across the elbow. ? # Normal Needle/ EMG exam. ? (Reconfirmed) Nerve Conduction Studies ?Stim Site NR Peak (ms) P-T Amp (?V) Site1 Site2 Delta-P (ms) Dist (cm) Jm (m/s) Left Median Anti Sensory (2-3nd Digit) Wrist ? 2.8 30.7 Wrist 2-3nd Digit 2.8 14.0 50 Wrist ? 2.8 28.1 Wrist 2-3nd Digit 2.8 14.0 50 Right Median Anti Sensory (2-3nd Digit) Wrist ? 2.5 37.2 Wrist 2-3nd Digit 2.5 14.0 56 Wrist ? 2.6 38.1 Wrist 2-3nd Digit 2.5 14.0 56 Left Radial Anti Sensory (Base 1st Digit) Wrist ? 1.5 23.8 Wrist Base 1st Digit 1.5 0.0 Right Radial Anti Sensory (Base 1st Digit) Wrist ? 1.9 14.5 Wrist Base 1st Digit 1.9 0.0 Left Ulnar Anti Sensory (5th Digit) Wrist ? 2.3 10.4 Wrist 5th Digit 2.3 14.0 61 Right Ulnar Anti Sensory (5th Digit) Wrist ? 2.3 4.3 Wrist 5th Digit 2.3 14.0 61 ?Stim Site NR Onset (ms) O-P Amp (mV) Site1 Site2 Delta-0 (ms) Dist (cm) Mj (m/s) Left Median Motor (Abd Poll Brev) Wrist ? 2.3 2.4 Elbow Wrist 5.4 32.0 59 Elbow ? 7.7 3.2 Right Median Motor (Abd Poll Brev) Wrist ? 2.3 6.4 Elbow Wrist 4.9 31.0 63 Elbow ? 7.2 6.1 Left Ulnar Motor (Abd Dig Minimi) Wrist ? 3.0 7.9 A Elbow Wrist 5.3 33.0 62 A Elbow ? 8.3 6.4 B Elbow Wrist 3.7 24.0 65 B Elbow ? 6.7 6.3 Right Ulnar Motor (Abd Dig Minimi) Wrist ? 2.4 9.1 A Elbow Wrist 5.7 32.0 56 A Elbow ? 8.1 7.3 B Elbow Wrist 3.9 23.0 59 B Elbow ? 6.3 4.5 F Wave Studies ?NR F-Lat (ms) L-R F-Lat (ms) Left Median (Mrkrs) (Abd Poll Brev) ? 26.53 1.07 Right Median (Mrkrs) (Abd Poll Brev) ? 25.46 1.07 Left Ulnar (Mrkrs) (Abd Dig Min) ? 26.65 0.56 Right Ulnar (Mrkrs) (Abd Dig Min) ? 26.09 0.56 Electromyography ?Side Muscle Nerve Root Ins Act Fibs Amp Dur Recrt Comment Right 1stDorInt Ulnar C8-T1 Nml Nml Nml Nml Nml Right Ext Indicis Radial (Post Int) C7-8 Nml Nml Nml Nml Nml Right Ext Digitorum Radial (Post Int) C7-8 Nml Nml Nml Nml Nml Right BrachioRad Radial C5-6 Nml Nml Nml Nml Nml Right PronatorTeres Median C6-7 Nml Nml Nml Nml Nml Right Abd Poll Brev Median C8-T1 Nml Nml Nml Nml Nml Right ABD Dig Min Ulnar C8-T1 Nml Nml Nml Nml Nml Right FlexPolLong Median (Ant Int) C7-8 Nml Nml Nml Nml Nml Right Abd Poll Long Radial (Post Int) C7-8 Nml Nml Nml Nml Nml Left 1stDorInt Ulnar C8-T1 Nml Nml Nml Nml Nml Left Ext Indicis Radial (Post Int) C7-8 Nml Nml Nml Nml Nml Left Ext Digitorum Radial (Post Int) C7-8 Nml Nml Nml Nml Nml Left BrachioRad Radial C5-6 Nml Nml Nml Nml Nml Left PronatorTeres Median C6-7 Nml Nml Nml Nml Nml Left Abd Poll Brev Median C8-T1 Nml Nml Nml Nml Nml Left ABD Dig Min Ulnar C8-T1 Nml Nml Nml Nml Nml Left FlexPolLong Median (Ant Int) C7-8 Nml Nml Nml Nml Nml Left Abd Poll Long Radial (Post Int) C7-8 Nml Nml Nml Nml Nml
== END 2025-03-26 12:47 | disposition home or self-care (01) ==
LOC: ANHNEURO 12:48
PROVIDERS: PCP Family Medicine; Visit Provider Plastic Surgery
DX: G56.21 Lesion of ulnar nerve, right upper limb (principal)
CPT/HCPCS: 95886; 95911